=== PATIENT | female | born 1960 | race American Indian/Alaskan Native ===

== ENCOUNTER 2018-12-05 14:53 | Emergency (ER) | payer MEDICAID ==
[2018-12-05 15:03] VITALS: BP 152/81
--- NOTE | 2018-12-05 15:05 | Emergency Department Report ---
Chief Complaint: Sore Throat Stated Complaint: BODYACHE/VOMITING/ABD PAIN Time Seen by Provider: 12/05/18 15:01 - HPI History of Present Illness: pt presents with sore throat that began last night subjective fever, body aches pt works in a daycare PMHx DM no dental problems pt swabbed for strep in triage and sent to lab MSE screening note: Focused history and physical exam performed. Due to findings the following was ordered: rapid strep ED Disposition for MSE Condition: Stable
[2018-12-05] MEDS ORDERED: TORADOL IM ONE (16:13)
[2018-12-05] MEDS ORDERED: ZOFRAN IM ONE (16:13)
[2018-12-05] MEDS ORDERED: BICILLIN L-A IM ONE (16:29)
--- NOTE | 2018-12-05 16:34 | Emergency Department Report ---
ED General Adult HPI - General Chief complaint: Sore Throat Stated complaint: BODYACHE/VOMITING/ABD PAIN Time Seen by Provider: 12/05/18 15:01 Source: patient Mode of arrival: Ambulatory Limitations: No Limitations - History of Present Illness Initial comments: Patient is a 58-year-old female who is complaining of body aches or throat cough cold congestion. Patient states she's been ill since yesterday. Patient states she's had one episode of diarrhea as 5 episodes of nausea vomiting today. 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 Patient states she's had some chills as well. Patient says bodyaches and sore throat or 6 out of 10 in severity. Patient denies neck stiffness Severity scale (0 -10): 8 - Related Data Previous Rx's Medication Instructions Recorded Last Taken Type HYDROcodone/ACETAMINOPHEN 15 ml PO Q6H PRN #150 solution 12/05/18 Unknown Rx [Hydrocodon-Acetamin 7.5-325/15] Ondansetron [Zofran Odt] 4 mg PO Q8HR #10 tab.rapdis 12/05/18 Unknown Rx Allergies Allergy/AdvReac Type Severity Reaction Status Date / Time No Known Allergies Allergy Unverified 12/05/18 14:55 ED Review of Systems ROS: Stated complaint: BODYACHE/VOMITING/ABD PAIN Other details as noted in HPI Comment: All other systems reviewed and negative ED Past Medical Hx - Past Medical History Hx Diabetes: Yes Additional medical history: chronic back pain - Social History Smoking Status: Unknown if ever smoked Substance Use Type: None - Medications Home Medications: Home Medications Medication Instructions Recorded Confirmed Last Taken Type HYDROcodone/ACETAMINOPHEN 15 ml PO Q6H PRN #150 solution 12/05/18 Unknown Rx [Hydrocodon-Acetamin 7.5-325/15] Ondansetron [Zofran Odt] 4 mg PO Q8HR #10 tab.rapdis 12/05/18 Unknown Rx ED Physical Exam - General Limitations: No Limitations General appearance: alert, in no apparent distress - Head Head exam: Present: atraumatic, normocephalic - Eye Eye exam: Present: normal appearance. Absent: PERRL, EOMI - ENT ENT exam: Present: mucous membranes moist. Absent: normal orophraynx (mild erythema without exudate) - Neck Neck exam: Present: normal inspection - Respiratory Respiratory exam: Present: normal lung sounds bilaterally. Absent: respiratory distress, wheezes, rales, rhonchi - Cardiovascular Cardiovascular Exam: Present: regular rate, normal rhythm. Absent: systolic murmur, diastolic murmur, rubs, gallop - GI/Abdominal GI/Abdominal exam: Present: soft, normal bowel sounds. Absent: distended, tenderness, guarding, rebound - Extremities Exam Extremities exam: Present: normal inspection - Back Exam Back exam: Present: normal inspection - Neurological Exam Neurological exam: Present: alert, oriented X3 - Psychiatric Psychiatric exam: Present: normal affect, normal mood - Skin Skin exam: Present: warm, dry, intact, normal color. Absent: rash ED Course Vital Signs 12/05/18 12/05/18 15:02 16:26 Temperature 98.3 F Pulse Rate 89 Respiratory 20 16 Rate Blood Pressure 152/81 O2 Sat by Pulse 100 Oximetry ED Medical Decision Making - Lab Data Lab Results 12/05/18 Range/Units 16:00 Group A Strep Rapid Positive A (Negative) - Medical Decision Making Patient is given meds for symptomatically relief for her nausea and body aches. Patient did test positive for strep pharyngitis. Patient was given Bicillin shot and will be discharged home with pain meds. Critical care attestation.: If time is entered above; I have spent that time in minutes in the direct care of this critically ill patient, excluding procedure time. ED Disposition Clinical Impression: Strep pharyngitis Disposition: DC-01 TO HOME OR SELFCARE Is pt being admited?: No Does the pt Need Aspirin: No Condition: Stable Instructions: Strep Throat (ED) Referrals: MONICA AYON MD [Primary Care Provider] - 3-5 Days Forms: Work/School Release Form(ED) Time of Disposition: 16:34
== END 2018-12-05 16:42 | disposition home or self-care (01) ==
LOC: ED 14:53
DX: J02.0 Streptococcal pharyngitis (principal); R11.2 Nausea with vomiting, unspecified; M54.9 Dorsalgia, unspecified; G89.29 Other chronic pain; E11.9 Type 2 diabetes mellitus without complications
CPT/HCPCS: 87430; 96372; 99283; J0561; J1885; J2405